=== PATIENT | female | born 1950 | race Caucasian/White ===

== ENCOUNTER 2019-08-29 21:53 | Emergency (ER) | payer MEDICARE, OTHER ==
[~2019-08-29] VITALS: Ht 167.6 cm; Wt 86.2 kg
[2019-08-29 22:04] VITALS: BP_SYST 165
[2019-08-29] MEDS ORDERED: ASPI-1153 PO (22:51)
[2019-08-29] MEDS ORDERED: LOSA1TAB43 PO (22:52)
[2019-08-29] MEDS ORDERED: CAT.1 PO (22:53)
[2019-08-29] MEDS ORDERED: COR6.25 PO (22:53)
[2019-08-29] MEDS ORDERED: NOR10 PO (22:53)
[2019-08-29] MEDS ORDERED: GLIM4TAB PO (22:54)
[2019-08-29] MEDS ORDERED: GLU850 PO (22:54)
[2019-08-29] MEDS ORDERED: PRO40 PO (22:55)
[2019-08-29] MEDS ORDERED: ROSU20TA2 PO (22:56)
[2019-08-29] MEDS ORDERED: FENO160 PO (22:56)
--- NOTE | 2019-08-30 01:50 | NUR ---
Pt ambulatory to bed 7 for evaluation
--- NOTE | 2019-08-30 01:55 | NUR ---
Pt came to the ED for high blood pressure. Reports pt at home was 180 however in ED BP is 167/80. Denies n/v/d or fever. No other complaints/injuries noted. Will cont. to monitor.
--- NOTE | 2019-08-30 02:19 | NUR ---
ER at bedside examining patient.
--- NOTE | 2019-08-30 02:45 | NUR ---
Patient given written and verbal discharge instructions and verbalizes understanding. ER MD Dr. Gallegos discussed with patient the results and treatment provided. Patient in stable condition. ID arm band removed. Patient educated on pain management and to follow up with PMD. Pain Scale 0/10. Opportunity for questions provided and answered. Medication side effect fact sheet provided.
[2019-08-30 02:59] VITALS: BP_SYST 165
== END 2019-08-30 02:45 | disposition home or self-care (01) ==
LOC: SED 21:53
DX: I10 Essential (primary) hypertension (principal); I25.10 Atherosclerotic heart disease of native coronary artery without angina pectoris; Z79.899 Other long term (current) drug therapy
CPT/HCPCS: 93005; 99283